=== PATIENT | female | born 1950 | race Hispanic/Latino ===

== ENCOUNTER 2017-06-04 20:31 | Emergency (ER) | payer MEDICARE, OTHER ==
[2017-06-04 20:53] VITALS: BMI 28.9
--- NOTE | 2017-06-04 20:55 | CP.PCM.PN ---
Addendum entered and electronically signed by BREANA BROWNING DO 06/04/17 20:57 : Rapid response was attended with attending, Dr. Posada. Original Note: <BREANA BROWNING - Last Filed: 06/04/17 20:43> Subjective - Date & Time of Evaluation Date of Evaluation: 06/04/17 Time of Evaluation: 20:27 - Subjective Subjective: RAPID RESPONSE NOTE: Rapid response to the main lobby was called at 20:27. Upon arrival, patient had already been transported to the ED. Objective - Vital Signs/Intake and Output Vital Signs (last 24 hours): Temp Pulse Resp BP Pulse Ox 110 H 18 114/80 100 06/04/17 20:42 06/04/17 20:37 06/04/17 20:37 06/04/17 20:37 - Medications Medications: Current Medications Adenosine (Adenosine 6 Mg/2 Ml Inj) 6 mg IVP STAT STA Stop: 06/04/17 20:42 Assessment and Plan - Assessment and Plan (Free Text) Plan: 1. Rapid Response -ED faculty to provide care <Damaris Posada - Last Filed: 06/04/17 23:55> Objective - Vital Signs/Intake and Output Vital Signs (last 24 hours): Temp Pulse Resp BP Pulse Ox 98 F 93 H 20 114/65 95 06/04/17 20:42 06/04/17 22:31 06/04/17 22:31 06/04/17 22:31 06/04/17 22:31 - Labs Labs: 06/04/17 20:45 06/04/17 20:45 Attending/Attestation - Attestation I have personally seen and examined this patient.: No I have fully participated in the care of the patient.: Yes I have reviewed all pertinent clinical information, including history, physical exam and plan: Yes Notes (Text): 06/04/17 23:55 Arrived in lobby promptly. Patient had been carried to ER and placed in CODE room.
--- NOTE | 2017-06-04 21:02 | ED PDOC ---
Arrival/HPI - General Chief Complaint: Palpitations Time Seen by Provider: 06/04/17 20:58 Historian: Patient - History of Present Illness Narrative History of Present Illness (Text): 06/04/17 20:00 A 66 year old female presents to the emergency department complaining of palpitations that started about 40 minutes ago. Patient notes she had similar symptoms a year ago and was treated for SVT at that time. Since then, patient notes she feels palpitations every now and then. Reports this is third time it lasted this long. Patient denies any chest pain, shortness of breath or any other complaints at this time. Symptom Onset: Sudden Symptom Course: Unchanged Activities at Onset: Rest Context: Home Past Medical History - Provider Review Nursing Documentation Reviewed: Yes - Infectious Disease Hx of Infectious Diseases: None - Tetanus Immunization Tetanus Immunization: Unknown - Cardiac Hx Cardiac Disorders: Yes Hx Hypertension: Yes - Pulmonary Hx Respiratory Disorders: No - Neurological Hx Neurological Disorder: No - HEENT Hx HEENT Disorder: No - Renal Hx Renal Disorder: No - Endocrine/Metabolic Hx Endocrine Disorders: No - Hematological/Oncological Hx Blood Disorders: No - Integumentary Hx Dermatological Disorder: No - Musculoskeletal/Rheumatological Hx Musculoskeletal Disorders: No - Gastrointestinal Hx Gastrointestinal Disorders: Yes Hx Gastroesophageal Reflux: Yes - Genitourinary/Gynecological Hx Genitourinary Disorders: No - Psychiatric Hx Psychophysiologic Disorder: Yes Hx Anxiety: Yes Hx Depression: Yes Hx Substance Use: No - Past Surgical History Past Surgical History: Non-Contributing - Surgical History Hx Thyroidectomy: Yes (2016) Other/Comment: facial surgery - Anesthesia Hx Anesthesia: Yes Hx Anesthesia Reactions: No Hx Malignant Hyperthermia: No - Suicidal Assessment Feels Threatened In Home Enviroment: No Family/Social History - Physician Review Nursing Documentation Reviewed: Yes Family/Social History: No Known Family HX Smoking Status: Former Smoker Hx Alcohol Use: No Hx Substance Use: No Hx Substance Use Treatment: No Allergies/Home Meds Allergies/Adverse Reactions: Allergies Penicillins Allergy (Verified 01/29/16 02:14) ANAPHYLAXIS shellfish derived Allergy (Verified 06/04/17 20:35) ANAPHYLAXIS Home Medications: Home Meds Medication Instructions Recorded Confirmed Aspirin 325 mg PO DAILY 12/22/14 01/29/16 Atorvastatin [Lipitor] 20 mg PO DAILY 12/22/14 01/29/16 DULoxetine [Cymbalta] 60 mg PO DAILY 12/22/14 01/29/16 Ezetimibe [Zetia] 10 mg PO DAILY 12/22/14 01/29/16 Omeprazole 40 mg PO DAILY 12/22/14 01/29/16 diaZEpam [Valium] 5 mg PO DAILY 12/22/14 01/29/16 Levothyroxine [Synthroid] 75 mcg PO DAILY 01/29/16 01/30/16 Metoprolol Succinate [Toprol XL] 50 mg PO DAILY 01/30/16 01/30/16 Review of Systems - Physician Review All systems were reviewed & negative as marked: Yes - Review of Systems Respiratory: absent: SOB Cardiovascular: Palpitations. absent: Chest Pain Physical Exam Vital Signs Reviewed: Yes Vital Signs Temp Pulse Resp BP Pulse Ox 06/04/17 22:31 93 H 20 114/65 95 06/04/17 22:23 97 H 18 129/74 97 06/04/17 20:42 98 F 110 H 06/04/17 20:37 171 H 18 114/80 100 Blood Pressure: Normal Pulse: Tachycardic Respiratory Rate: Normal Appearance: Positive for: Well-Appearing, Non-Toxic, Comfortable Pain Distress: None Mental Status: Positive for: Alert and Oriented X 3 - Systems Exam Head: Present: Atraumatic, Normocephalic Pupils: Present: PERRL Extroacular Muscles: Present: EOMI Conjunctiva: Present: Normal Mouth: Present: Moist Mucous Membranes Neck: Present: Normal Range of Motion Respiratory/Chest: Present: Clear to Auscultation, Good Air Exchange. No: Respiratory Distress, Accessory Muscle Use Cardiovascular: Present: Tachycardic Abdomen: Present: Normal Bowel Sounds. No: Tenderness, Distention, Peritoneal Signs Back: Present: Normal Inspection Upper Extremity: Present: Normal Inspection. No: Cyanosis, Edema Lower Extremity: Present: Normal Inspection. No: Edema Neurological: Present: GCS=15, CN II-XII Intact, Speech Normal Skin: Present: Warm, Dry, Normal Color. No: Rashes Psychiatric: Present: Alert, Oriented x 3, Normal Insight, Normal Concentration Medical Decision Making ED Course and Treatment: 06/04/17 20:35 Patient was given 6 mg of adenosine with conversion to NSR. 06/04/17 20:39 EKG shows SVT at rate of 165 BPM. Interpreted by me. 06/04/17 20:45 EKG: Ordered, reviewed, and independently interpreted the EKG. Rate : 105 BPM Rhythm : Sinus tachycardia Interpretation : Normal intervals, no acute ischemia 06/04/17 23:12 The pt is resting comfortably in no distress. She feels better and is comfortable w dc home. I also spoke with her son on the phone and let him know what is going on and he is agreeable to this plan. - Lab Interpretations Lab Results: 06/04/17 20:45 06/04/17 20:45 Lab Results 06/04/17 22:30: TSH 3rd Generation 4.01 06/04/17 20:45: Sodium 139, Potassium 3.3 L, Chloride 99, Carbon Dioxide 25, Anion Gap 18, BUN 16, Creatinine 0.8, Est GFR ( Amer) > 60, Est GFR (Non- Af Amer) > 60, Random Glucose 88, Calcium 9.3, Total Bilirubin 0.4, AST 27, ALT 24, Alkaline Phosphatase 102, Total Protein 8.5 H, Albumin 4.6, Globulin 3.9, Albumin/Globulin Ratio 1.2 06/04/17 20:45: WBC 10.0 D, RBC 5.02, Hgb 13.0, Hct 40.7, MCV 81.1, MCH 25.9, MCHC 31.9, RDW 15.7 H, Plt Count 403, MPV 10.8, Gran % 57.9, Lymph % (Auto) 32.2 , [place] % (Auto) 7.6 H, Eos % (Auto) 1.6, Baso % (Auto) 0.7, Gran # 5.76, Lymph # 3.2, [place] # 0.8 H, Eos # 0.2, Baso # 0.07 - Medication Orders Current Medication Orders: Discontinued Medications Adenosine (Adenosine 6 Mg/2 Ml Inj) Confirm Administered Dose 12 mg .ROUTE .STK- MED ONE Stop: 06/04/17 20:37 Last Admin: 06/04/17 20:56 Dose: Adenosine (Adenosine 6 Mg/2 Ml Inj) 6 mg IVP STAT STA Stop: 06/04/17 20:42 Last Admin: 06/04/17 20:40 Dose: 6 mg Potassium Chloride (K-Dur 20 Meq Er Tab) 80 meq PO STAT STA Stop: 06/04/17 22:42 - Scribe Statement The provider has reviewed the documentation as recorded by the Tay Altman Provider Scribe Attestation: All medical record entries made by the Surekhaibrain were at my direction and personally dictated by me. I have reviewed the chart and agree that the record accurately reflects my personal performance of the history, physical exam, medical decision making, and the department course for this patient. I have also personally directed, reviewed, and agree with the discharge instructions and disposition. Disposition/Present on Arrival - Present on Arrival Any Indicators Present on Arrival: No History of DVT/PE: No History of Uncontrolled Diabetes: No Urinary Catheter: No History of Decub. Ulcer: No History Surgical Site Infection Following: None - Disposition Have Diagnosis and Disposition been Completed?: Yes Diagnosis: SVT (supraventricular tachycardia) Disposition: HOME/ ROUTINE Disposition Time: 23:47 Condition: STABLE Discharge Instructions (ExitCare): Supraventricular Tachycardia (ED) Additional Instructions: Please follow up with your doctor tomorrow. Return to the ER for any worsening symptoms, chest pain, palpitations, difficulty breathing, dizziness or for any other concerns. Referrals: Caryn Nguyen MD [Primary Care Provider] - Follow up with primary Forms: Your Tribute ([place])
[2017-06-04 22:27] LABS: BASO # 0.07 K/mm3 (0.0-2.0); BASO % 0.7 % (0.0-3.0); EOS # 0.2 (0.0-0.7); EOS % 1.6 % (1.5-5.0); GRAN # 5.76 (1.4-6.5); GRAN % 57.9 % (50.0-68.0); LYMPH # 3.2 (1.2-3.4); LYMPH % 32.2 % (22.0-35.0); MEAN CELL VOLUME 81.1 fl (80.0-105.0); MEAN CORPUSCULAR HEMOGLOBIN 25.9 pg (25.0-35.0); MEAN CORPUSCULAR HGB CONC 31.9 g/dl (31.0-37.0); MEAN PLATELET VOLUME 10.8 fl (7.0-11.0); MONO # 0.8 (0.1-0.6); MONO % 7.6 % (1.0-6.0); PLATELET COUNT 403 10^3/uL (120.0-450.0); RBC 5.02 10^6/uL (3.5-6.1); RED CELL DISTRIBUTION WIDTH 15.7 % (11.5-14.5)
[2017-06-04 22:37] LABS: ALB/GLOB RATIO 1.2 (1.1-1.8); ALBUMIN 4.6 g/dL (3.0-4.8); ALT/SGPT 24 U/L (7-56); AST/SGOT 27 U/L (15-39); BLOOD UREA NITROGEN 16 mg/dL (7-21); CALCIUM 9.3 mg/dL (8.4-10.5); GFR AFRICAN-AMERICAN > 60; GFR NON-AFRICAN AMERICAN > 60
[2017-06-04] MEDS ORDERED: Potassium Chloride 20 mEq ER Tab PO STA (22:41)
[2017-06-04 23:36] VITALS: TEMP 98
[2017-06-04 23:45] VITALS: BP 114/65; PULSE 93; RESP 20; O2SAT 95
--- NOTE | 2017-06-05 23:28 | CARD ---
APPROVED REPORT EKG Measurement Heart [id number] <Conclusion> Sinus tachycardia Otherwise normal ECG
--- NOTE | 2017-06-05 23:28 | CARD ---
APPROVED REPORT EKG Measurement Heart [id number] <Conclusion> Atrial fibrillation with rapid ventricular response Nonspecific ST abnormality, probably digitalis effect Abnormal ECG
== END 2017-06-04 23:47 | disposition home or self-care (01) ==
LOC: ED 20:31
DX: I47.1 Supraventricular tachycardia (principal)
CPT/HCPCS: 80053; 84443; 85025; 93005; 96374; 99284; J0153